=== PATIENT | female | born 1995 | race Caucasian/White ===

== ENCOUNTER 2023-12-11 01:05 | Inpatient (IN) | payer MEDICAID ==
[~2023-12-11] VITALS: Ht 160 cm; Wt 70.8 kg
[2023-12-11] MEDS ORDERED: HALOPERIDOL 5 MG TABLET PO PRN (01:15)
[2023-12-11] MEDS ORDERED: ZOLPIDEM TARTRATE 10 MG TABLET PO PRN (01:15)
[2023-12-11 03:24] VITALS: BP 118/63; PULSE 102; RESP 17; TEMP 97.5
[2023-12-11 03:41] VITALS: BP 118/63; PULSE 102; RESP 17; TEMP 97.5; O2SAT 97
[2023-12-11] MEDS ORDERED: LOPERAMIDE HCL 2 MG CAPSULE PO PRN (07:00)
[2023-12-11] MEDS ORDERED: NICOTINE 14 MG/24 HOUR PATCH TD PRN (07:00)
[2023-12-11] MEDS ORDERED: ACETAMINOPHEN 325 MG TABLET PO PRN (07:00)
[2023-12-11] MEDS ORDERED: ALBUTEROL SULFATE HFA 90 MCG/PUFF 8 GM INHALER IH PRN (07:00)
[2023-12-11] MEDS ORDERED: MAG HYDROX/ALUMINUM HYD/SIMETH ES 30 ML SUSPENSION UDCUP PO PRN (07:00)
[2023-12-11] MEDS ORDERED: IBUPROFEN 400 MG TABLET PO PRN (07:00)
[2023-12-11] MEDS ORDERED: CloNIDine HCL 0.1 MG TABLET PO PRN (07:00)
[2023-12-11] MEDS ORDERED: PETROLATUM,WHITE 28 GM JELLY TP PRN (07:00)
[2023-12-11] MEDS ORDERED: GuaiFENesin/D-METHORPHAN [SUGAR-FREE] 200-20MG/10 ML SYRUP UDCUP PO PRN (07:00)
[2023-12-11] MEDS ORDERED: ONDANSETRON HCL 4 MG TABLET PO PRN (07:00)
[2023-12-11] MEDS ORDERED: MAGNESIUM HYDROXIDE SUSPENSION 30 ML UDCUP PO PRN (07:00)
[2023-12-11 08:22] VITALS: RESP 16
[2023-12-11] MEDS: DOCUSATE SODIUM 100 MG CAPSULE PO PRN (12:09)
[2023-12-11] MEDS: LITHIUM CARBONATE 300 MG TABLET PO SCH (16:57)
[2023-12-11 17:10] VITALS: BP 106/60; PULSE 103; RESP 18; TEMP 98.4
[2023-12-11] MEDS: PredniSONE 20 MG TABLET PO SCH (17:15)
[2023-12-11] MEDS: FAMOTIDINE 20 MG TABLET PO SCH (17:16)
[2023-12-11] MEDS: DiphenhydrAMINE HCL 25 MG CAPSULE PO SCH (17:16)
[2023-12-11 21:27] VITALS: BP 141/49; PULSE 106; RESP 17; TEMP 97.6
[2023-12-11 21:30] VITALS: BP 143/49; PULSE 106; RESP 17; TEMP 97.6; O2SAT 99
[2023-12-12 08:41] VITALS: BP 115/71; PULSE 100; RESP 18; TEMP 97.2; O2SAT 98
[2023-12-12 10:48] LABS: APPEARANCE,URINE TURBID (CLEAR); BILIRUBIN,URINE NEGATIVE (NEGATIVE); COLOR,URINE YELLOW (YELLOW); GLUCOSE, URINE (UA) NEGATIVE (NEGATIVE); KETONES,URINE NEGATIVE (NEGATIVE); LEUKOCYTE ESTERASE ,URINE NEGATIVE (NEGATIVE); NITRATE,URINE NEGATIVE (NEGATIVE); OCCULT BLOOD,URINE NEGATIVE (NEGATIVE); PH,URINE 6.5 (5.0-8.0); PH,URINE DRUG SCREEN 6.5 (5.0-8.0); PROTEIN,URINE 30-70 mg/dL (NEGATIVE); SPECIFIC GRAVITIY, URINE 1.023 (1.003-1.030); UROBILINOGEN,URINE <=1.0 mg/dL (<=1.0)
[2023-12-12 11:09] LABS: ALCOHOL, URINE DRUG SCREEN NEGATIVE (NEGATIVE); AMPHET/METH SCREEN,URINE NEGATIVE (NEGATIVE); BARBITURATE SCREEN, URINE NEGATIVE (NEGATIVE); BENZODIAZEPINES SCREEN,URINE NEGATIVE (NEGATIVE); CANNABINOID SCREEN,URINE POSITIVE (NEGATIVE); COCAINE SCREEN,URINE NEGATIVE (NEGATIVE); METHADONE SCREEN, URINE NEGATIVE (NEGATIVE); OPIATE SCREEN,URINE NEGATIVE (NEGATIVE); PHENCYCLIDINE SCREEN,URINE NEGATIVE (NEGATIVE)
[2023-12-12 11:42] LABS: BASOPHILS % (AUTO) 0.1 % (0.0-2.0); EOSINOPHILS % (AUTO) 0 % (1.0-6.0); HEMATOCRIT 42.2 % (36-46); LYMPHOCYTES # (AUTO) 0.4 K/uL (1.0-4.8); LYMPHOCYTES % (AUTO) 3.8 % (22.0-44.0); MEAN CORPUSCULAR HEMOGLOBIN 31.9 pg (26.0-34.0); MEAN CORPUSCULAR HGB CONC 33.2 G/dL (31.0-37.0); MEAN CORPUSCULAR VOLUME 96 fL (80-100); MONOCYTES # (AUTO) 0.3 K/uL (0.1-1.0); NEUTROPHILS # (AUTO) 10.3 K/uL (1.8-7.7); NEUTROPHILS % (AUTO) 93.1 % (40.0-70.0); PLATELET COUNT (AUTO) 318 K/uL (150-450); RED BLOOD CELL COUNT(AUTO) 4.39 MIL/uL (4.00-5.20); RED CELL DISTRIBUTION WIDTH 14.8 % (11.5-14.5); WHITE BLOOD COUNT (AUTO) 11.1 K/uL (4.5-11.0)
[2023-12-12 12:02] LABS: ALANINE AMINOTRANSFERASE 32 U/L (12-78); ALBUMIN 4.1 g/dL (3.4-5.0); ALKALINE PHOSPHATASE 58 U/L (46-116); ANION GAP 12 mmol/L (8-16); ASPARTATE AMINOTRANSFERASE 17 U/L (15-37); BILIRUBIN,TOTAL 0.5 mg/dL (0.1-1.0); CALCIUM, TOTAL 9.3 mg/dL (8.8-10.5); CARBON DIOXIDE 25 mmol/L (22-29); CHLORIDE 103 mmol/L (98-107); CHOL/HDL RATIO 2.6 (3.9-5.7); CHOLESTEROL 199 mg/dL (131-200); CREATININE 0.74 mg/dL (0.60-1.30); GLOMERULAR FILTR. RATE CALC > 60 mL/min (>60); GLUCOSE,RANDOM 110 mg/dL (70-110); HDL CHOLESTEROL 78 mg/dL (40-60); LDL CHOL (CALC.) 108 mg/dL (0-130); POTASSIUM 3.8 mmol/L (3.5-5.1); SODIUM SERUM 140 mmol/L (136-145); TOTAL PROTEIN, SERUM 8.1 g/dL (6.4-8.2); TRIGLYCERIDES 67 mg/dL (15-150); UREA NITROGEN, BLOOD 8 mg/dL (7-18)
[2023-12-12 12:38] LABS: FREE T4 (FREE THYROXINE) 1.17 ng/dL (0.76-1.46); HCG,QUANTITATIVE < 1 mIU/mL (0-6); T4 (THYROXINE) 10.8 mcg/dL (4.7-13.3); THYROID STIMULATING HORMONE 0.42 uIU/mL (0.36-3.74)
[2023-12-12 20:00] VITALS: BP 139/86; PULSE 67; RESP 18; TEMP 97.9; O2SAT 100
[2023-12-12] MEDS: LORazepam 2 MG TABLET PO PRN (21:36)
[2023-12-13 08:10] VITALS: BP 109/78; PULSE 100; RESP 18; TEMP 97.6; O2SAT 99
[2023-12-13 20:15] VITALS: BP 122/87; PULSE 102; RESP 16; TEMP 96.7; O2SAT 99
[2023-12-14 08:22] VITALS: BP 113/82; PULSE 92; RESP 18; TEMP 98.2; O2SAT 99
[2023-12-14] MEDS ORDERED: LITH300T PO (12:23)
[2023-12-14] MEDS ORDERED: FAMO20 PO (12:23)
== END 2023-12-14 18:45 | disposition home or self-care (01) | DRG 753 ==
LOC: B3A 01:10
PROVIDERS: ADMIT Psychiatry & Neurology Psychiatry; ATTEND Psychiatry & Neurology Psychiatry
PROC: GZHZZZZ Group Psychotherapy (ICD-10-PCS; principal; 2023-12-11)
DX: F31.5 Bipolar disorder, current episode depressed, severe, with psychotic features (principal); R45.851 Suicidal ideations; R00.0 Tachycardia, unspecified; F12.90 Cannabis use, unspecified, uncomplicated; D72.829 Elevated white blood cell count, unspecified; Z91.018 Allergy to other foods
CPT/HCPCS: 80053; 80061; 80178; 80307; 81003; 83036; 84436; 84439; 84443; 84702; 85025; 86592